=== PATIENT | female | born 1960 | race Caucasian/White ===

== ENCOUNTER 2018-03-03 13:49 | Inpatient (IN) | payer BC, OTHER ==
--- NOTE | 2018-03-03 14:16 | PDOC ---
History of Present Illness - General Stated Complaint: ABD PAIN, ANXIETY Time Seen by Provider: 03/03/18 14:16 History Source: Patient Exam Limitations: No Limitations - History of Present Illness Initial Comments: 03/03/18 15:14 58 year old female with PMH pancreatic divisum, pancreatitis, cholecystectomy, appendectomy, david fundoplication, TIA (2013) BIBA for abdominal pain x1 week. She locates her abdominal pain to the epigastrium and RUQ, radiating to her right flank/right back, constant, sharp/crampy, aggravated by movement/ coughing, alleviated by CBD oil, currently 12/07. She admits to nausea, vomiting since yesterday, denies blood in vomit. She denies fever, chest pain, palpitations, shortness of breath, diarrhea, blood in stool. She states that she is constipated, which is not new for her. She states she usually follows up at [facility], but came to [facility] because it is closer. PCP - Dr. Casey Santamaria Allergies: - Ketorlac - increases pain - Reglan - SOB/airway swelling - Compazine - SOB/airway swelling Past History - Past Medical History Allergies/Adverse Reactions: Allergies Allergy/AdvReac Type Severity Reaction Status Date / Time ketorolac tromethamine Allergy Verified 03/03/18 14:19 [From Toradol] metoclopramide HCl Allergy Verified 03/03/18 14:19 [From Reglan] prochlorperazine Allergy Verified 03/03/18 14:19 [From Compazine] prochlorperazine edisylate Allergy Verified 03/03/18 14:19 [From Compazine] prochlorperazine maleate Allergy Verified 03/03/18 14:19 [From Compazine] Home Medications: Ambulatory Orders Clonazepam [Klonopin] 1 mg PO QID 03/03/18 Escitalopram Oxalate [Lexapro -] 10 mg PO DAILY 03/03/18 Lipase/Protease/Amylase [Tee Peterson 24,000 Units Capsule] 1 each PO DAILY Anemia: No Asthma: No Cancer: No CVA: No Diabetes: No GI Disorders: Yes HTN: Yes (from anxiety) Psychiatric Problems: Yes (Anxiety) Seizures: No - Surgical History Abdominal Surgery: Yes (Pancreatic Sx w/ 3stents placement, Fundoplication, Colectomy, EsophagealSx) Appendectomy: Yes Cholecystectomy: Yes Orthopedic Surgery: Yes (shoulder surgey) - Immunization History Immunization Up to Date: Yes - Suicide/Smoking/Psychosocial Hx Smoking History: Former smoker Have you smoked in the past 12 months: No Number of Cigarettes Smoked Daily: 0 Cigars Per Day: 0 'Breaking Loose' booklet given: 02/21/15 Hx Alcohol Use: No Drug/Substance Use Hx: No Substance Use Type: None Review of Systems - Review of Systems Able to Perform ROS?: Yes Comments:: 03/03/18 15:20 General: denies fever, night sweats, generalized weakness. HEENT: denies sore throat, rhinorrhea, ear pain. Heart: denies chest pain, palpitations, syncope, lower extremity swelling, diaphoresis. Respiratory: denies shortness of breath, cough, sputum production, hemoptysis. Abdomen: admits to abdominal pain, nausea, vomiting, constipation. denies diarrhea, blood in stool. : admits to flank pain. denies dysuria, increased urinary frequency, hematuria , urinary incontinence. Back: admits to back pain. Musculoskeletal: denies joint pain, muscle pain, joint swelling. Neurological: denies headache, dizziness, numbness, tingling, weakness. Skin: denies rash, laceration, abrasion. *Physical Exam - Physical Exam Comments: 03/03/18 15:21 Constitutional: Well-nourished, Well-developed, appearing stated age. HEENT: head is normocephalic, atraumatic. EOMI. PERRLA. Neck: supple. Full ROM. Heart: regular rhythm. no murmurs, rubs or gallops. Lungs: clear to auscultation bilaterally. no crackles, rhonchi or wheezing. no stridor. Abdomen: soft. tenderness to palpation of epigastrium and LLQ. decreased bowel sounds. no rebound, guarding, masses. midline vertical healed surgical scar. no belly button noted. Extremities: Peripheral pulses intact and equal. No lower extremity edema. Neurological: CN 2-12 grossly intact. Moves all four extremities. Psych: awake, alert, oriented x3. Follows commands. Answers questions appropriately. Heart Score/ECG Review - ECG Impressions Comment:: 03/03/18 18:05 rate 62. regular rhythm. normal axis. normal intervals. nonspecific ST changes. ED Treatment Course - LABORATORY CBC & Chemistry Diagram: 03/03/18 16:35 03/03/18 14:36 Medical Decision Making - Medical Decision Making 03/03/18 15:22 58 year old female with PMH pancreatic divisum, pancreatitis, TIA (2013), cholecystectomy, appendectomy, david fundoplication, BIBA for Epigastric/RUQ abdominal pain radiating to her right flank/right back x1 week associated with 1 day of nausea/vomiting. Initial Vital Signs Temp Pulse Resp BP Pulse Ox 98.0 F 78 18 126/73 98 03/03/18 14:09 03/03/18 14:09 03/03/18 14:09 03/03/18 14:09 03/03/18 14:09 Afebrile. No tachycardia. No tachypnea. No hypotension. Ny hypertension. No hypoxia on room air. Concern for pancreatitis, hx of prior, epigastric pain/N/V. - Pending lipase, CMP, CBC - Pending CT A/P Low concern for UTI/nephrolithiasis, (+) right flank pain - Pending CBC, UA/UC, CT A/P Morphine 4 mg IV ordered for pain. Zofran 4 mg IV ordered for nausea. IVF 1L bolus ordered for hydration. 03/03/18 16:44 RN was able to place line in right foot. US guided IV was placed in right AC area for better access. Pt reports improvement of her pain, but that she feels it slightly coming back. 03/03/18 17:39 CBC WBC 7.7 K/mm3 (4.0-10.0) 03/03/18 16:35 Corrected WBC (auto) Cancelled 03/03/18 14:36 RBC 4.00 M/mm3 (3.60-5.2) 03/03/18 16:35 Hgb 11.5 GM/dL (10.7-15.3) 03/03/18 16:35 Hct 35.1 % (32.4-45.2) 03/03/18 16:35 MCV 87.8 fl (80-96) 03/03/18 16:35 MCH 28.9 pg (25.7-33.7) 03/03/18 16:35 MCHC 32.9 g/dl (32.0-36.0) 03/03/18 16:35 RDW 13.8 % (11.6-15.6) 03/03/18 16:35 Plt Count 361 K/MM3 (134-434) 03/03/18 16:35 MPV 7.4 fl (7.5-11.1) L 03/03/18 16:35 Absolute Neuts (auto) 5.2 K/mm3 (1.5-8.0) 03/03/18 16:35 Neutrophils % 68.0 % (42.8-82.8) 03/03/18 16:35 Lymphocytes % 23.7 % (8-40) D 03/03/18 16:35 Monocytes % 7.0 % (3.8-10.2) 03/03/18 16:35 Eosinophils % 0.1 % (0-4.5) 03/03/18 16:35 Basophils % 1.2 % (0-2.0) 03/03/18 16:35 Nucleated RBC % 0 % (0-0) 03/03/18 16:35 Platelet Estimate Cancelled 03/03/18 14:36 Platelet Comment Cancelled 03/03/18 14:36 No leukocytosis. No anemia. CMP Sodium 140 mmol/L (136-145) 03/03/18 14:36 Potassium 3.9 mmol/L (3.5-5.1) 03/03/18 14:36 Chloride 108 mmol/L (98-107) H 03/03/18 14:36 Carbon Dioxide 23 mmol/L (21-32) 03/03/18 14:36 Anion Gap 8 MMOL/L (8-16) 03/03/18 14:36 BUN 13 mg/dL (7-18) 03/03/18 14:36 Creatinine 0.9 mg/dL (0.55-1.3) 03/03/18 14:36 Creat Clearance w eGFR > 60 (>60) 03/03/18 14:36 Random Glucose 95 mg/dL (74-106) 03/03/18 14:36 Calcium 9.1 mg/dL (8.5-10.1) 03/03/18 14:36 Total Bilirubin 0.3 mg/dL (0.2-1) 03/03/18 14:36 AST 29 U/L (15-37) 03/03/18 14:36 ALT 12 U/L (13-61) L 03/03/18 14:36 Alkaline Phosphatase 103 U/L (45-117) 03/03/18 14:36 Creatine Kinase 138 IU/L (26-192) 03/03/18 14:36 Troponin I < 0.02 ng/ml (0.00-0.05) 03/03/18 14:36 Total Protein 7.6 g/dl (6.4-8.2) 03/03/18 14:36 Albumin 4.0 g/dl (3.4-5.0) 03/03/18 14:36 Lipase 1791 U/L (73-393) H 03/03/18 14:36 No electrolyte abnormalities. No acute kidney injury. No transaminitis. Troponin normal. Elevated lipase - 1791; prior 44,514 Pt reports continued pain. - Morphine 4mg IV ordered - Second 1L bolus IVF ordered. Urine Test Results Urine Color Colorless 03/03/18 16:12 Urine Appearance Clear 03/03/18 16:12 Urine pH 8.0 (5.0-8.0) D 03/03/18 16:12 Ur Specific [place] 1.005 (1.004-1.035) 03/03/18 16:12 Urine Protein Negative (NEGATIVE) 03/03/18 16:12 Urine Glucose (UA) Negative (NEGATIVE) 03/03/18 16:12 Urine Ketones Negative (NEGATIVE) 03/03/18 16:12 Urine Blood Negative (NEGATIVE) 03/03/18 16:12 Urine Nitrite Negative (NEGATIVE) 03/03/18 16:12 Urine Bilirubin Negative (<2.0 mg/dL) 03/03/18 16:12 Ur Leukocyte Esterase Trace (NEGATIVE) 03/03/18 16:12 Ur Epithelial Cells Rare /HPF (FEW) 03/03/18 16:12 WBC 0-2 No evidence of UTI. 03/03/18 18:[address] Rosalio ochoa. 03/03/18 19:55 I discussed the case with Dr. Michele, who will assume care for the patient while she is in the Emergency Department. *DC/Admit/Observation/Transfer Diagnosis at time of Disposition: Pancreatitis - Discharge Dispostion Condition at time of disposition: Stable - Referrals - Patient Instructions - Post Discharge Activity
[2018-03-03 15:12] VITALS: BMI 20.5
[2018-03-03] MEDS ORDERED: morphine CARPU-JECT 4 MG/1 ML DISP.SYRIN IVPUSH ONE ×3 (15:16→19:41)
[2018-03-03] MEDS ORDERED: ONDANSETRON 4 MG/2 ML VIAL IVPUSH ONE (15:16)
[2018-03-03] MEDS ORDERED: SODIUM CHLORIDE 1,000 ML IV STA ×2 (15:16→16:49)
[2018-03-03] MEDS ORDERED: ONDANSETRON 4 MG/2 ML VIAL ONE (15:25)
[2018-03-03] MEDS ORDERED: morphine SULFATE 4 MG/ML VIAL ONE ×3 (15:25→20:18)
[2018-03-03 16:03] LABS: INR 1.02 (0.83-1.09)
[2018-03-03 16:06] LABS: ACTIVATED PTT 34.8 SECONDS (25.2-36.5)
[2018-03-03 16:16] LABS: ALK PHOS 103 U/L (45-117); ANION GAP 8 MMOL/L (8-16); BILIRUBIN,TOTAL 0.3 mg/dL (0.2-1); BLOOD UREA NITROGEN 13 mg/dL (7-18); CALCIUM 9.1 mg/dL (8.5-10.1); CHLORIDE 108 mmol/L (98-107); CO2 23 mmol/L (21-32); CREATININE 0.9 mg/dL (0.55-1.3); GLUCOSE,RANDOM 95 mg/dL (74-106); LIPASE 1791 U/L (73-393); POTASSIUM 3.9 mmol/L (3.5-5.1); SGOT/AST 29 U/L (15-37); SGPT/ALT 12 U/L (13-61); SODIUM 140 mmol/L (136-145); TOT PROT 7.6 g/dl (6.4-8.2)
[2018-03-03 16:44] LABS: BASO % 1.2 % (0-2.0); EOS % 0.1 % (0-4.5); HEMATOCRIT 35.1 % (32.4-45.2); HEMOGLOBIN 11.5 GM/dL (10.7-15.3); LYMPH % 23.7 % (8-40); MCH 28.9 pg (25.7-33.7); MCHC 32.9 g/dl (32.0-36.0); MEAN CELL VOLUME 87.8 fl (80-96); MEAN PLT VOLUME 7.4 fl (7.5-11.1); PLATELET COUNT 361 K/MM3 (134-434); RDW 13.8 % (11.6-15.6); WHITE BLOOD COUNT 7.7 K/mm3 (4.0-10.0)
--- NOTE | 2018-03-03 16:47 | PDOC ---
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 Lipase elevated IV placed. CT abdomen pelvis make patient nothing by mouth hydrate pain meds and reassessed Dr. Allen to follow up Labs and CT and reasses <Bartolome Beck - Last Filed: 03/03/18 16:53> - HPI HPI: 03/03/18 16:54 The patient is a 58 year old female with a significant past medical history of pancreatic divisum, pancreatitis, TIA in 2013 who presents to the ER with abdominal pain for the past week. Patient localizes the pain in the epigastrium that radiates to the right side of her back and is exacerbated with coughing. Patient endorses nausea and vomiting yesterday. Patient denies blood in the vomit. Patient has been unable to tolerate food or drinks other than small sips of gingerale. The patient denies chest pain, shortness of breath, headache, and dizziness. Denies fever, chills, diarrhea, and constipation. Denies dysuria, frequency, urgency, and hematuria. Allergies: NKA Past surgical history: pancreatic stent Social history: No reported alcohol, drug, or cigarette use. - Physicial Exam PE: 03/03/18 16:54 Adult Physical Exam Vitals: Triage vital signs reviewed General Appearance: No acute distress, well nourished, well developed Cardiac: Regular rate and rhythm, no murmurs, no rubs, no gallops Lungs: Clear to auscultation bilateral, good air movement bilaterally Abdomen: Soft, nondistended, normal bowel sounds. (+) Epigastric tenderness. Extremities: Full range of motion to all extremities, no cyanosis, clubbing, or edema Skin: Warm and dry, no rashes or lesions, no rash, no petechiae Neuro: AOX3; Cranial Nerves 2-12 grossly intact, Strength intact to all extremities, Sensation intact to all extremities, gait normal Psych: Normal mood, normal affect <Renetta Tejeda - Last Filed: 03/03/18 16:54>
--- NOTE | 2018-03-03 16:48 | PDOC ---
*Physical Exam - Vital Signs Last Vital Signs Temp Pulse Resp BP Pulse Ox 98.0 F 78 18 126/73 98 03/03/18 14:09 03/03/18 14:09 03/03/18 14:09 03/03/18 14:09 03/03/18 14:09 - Physical Exam Comments: 03/03/18 19:49 gen: aaox3, uncomfortable abd: soft, epigastric ttp, R cva ttp ext: no c/c/e ED Treatment Course - LABORATORY CBC & Chemistry Diagram: 03/03/18 16:35 03/03/18 14:36 - ADDITIONAL ORDERS Additional order review: Laboratory Results 03/03/18 03/03/18 14:36 14:36 PT with INR 12.00 INR 1.02 PTT (Actin FS) 34.8 Sodium 140 Potassium 3.9 Chloride 108 H Carbon Dioxide 23 Anion Gap 8 BUN 13 Creatinine 0.9 Creat Clearance w eGFR > 60 Random Glucose 95 Calcium 9.1 Total Bilirubin 0.3 AST 29 ALT 12 L Alkaline Phosphatase 103 Creatine Kinase 138 Troponin I < 0.02 Total Protein 7.6 Albumin 4.0 Lipase 1791 H 03/03/18 14:36 RBC Cancelled MCV Cancelled MCHC Cancelled RDW Cancelled MPV Cancelled Neutrophils % Cancelled Lymphocytes % Cancelled Monocytes % Cancelled Eosinophils % Cancelled Basophils % Cancelled - Medications Given in the ED: ED Medications Discontinued Medications Generic Name Dose Route Start Last Admin Trade Name Freq PRN Reason Stop Dose Admin Sodium Chloride 1,000 mls @ 1,000 mls/hr 03/03/18 15:16 03/03/18 15:34 Normal Saline - IV 03/03/18 16:15 1,000 mls/hr ASDIR STA Administration Morphine Sulfate 4 mg 03/03/18 15:16 03/03/18 15:34 Morphine Injection - IVPUSH 03/03/18 15:17 4 mg ONCE ONE Administration Ondansetron HCl 4 mg 03/03/18 15:16 03/03/18 15:34 Zofran Injection IVPUSH 03/03/18 15:17 4 mg ONCE ONE Administration Medical Decision Making - Medical Decision Making 03/03/18 16:48 pt signed out from the prior attending with epigastric pain and hx of pancreatitis -cbc pending -ct abd/pelvis pending -lipase 1700 -will make pt npo 03/03/18 19:32 fluid filled small bowel loops elevated lipase to 1790 no acute pancreatitis on ct will admit to medicine for npo, gi eval, ivf hydation and pancreatitits 03/03/18 19:52 pt with abd pain and elevated lipase will admit to medicine npo ivf hydraiton, pain control, nuasea control microblog sent to [facility] for admission 03/03/18 21:48 resident discussed the case with [facility] who accepts pt to service *DC/Admit/Observation/Transfer Diagnosis at time of Disposition: Abdominal pain Pancreatitis Qualifiers: Chronicity: chronic Pancreatitis type: unspecified pancreatitis type Qualified Code(s): K86.1 - Other chronic pancreatitis - Discharge Dispostion Condition at time of disposition: Stable Decision to Admit order: Yes - Referrals - Patient Instructions - Post Discharge Activity - Attestations Physician Attestion: 03/03/18 16:48 I, Dr. Val Allen, DO, attest that this document has been prepared under my direction and personally reviewed by me in its entirety. I further attest, that it accurately reflects all work, treatment, procedures and medical decision -making performed by me.
[2018-03-03 16:49] LABS: URINE APPEARANCE CLEAR; URINE BILIRUBIN NEGATIVE (<2.0 mg/dL); URINE COLOR COLORLESS; URINE GLUCOSE (UA) NEGATIVE (NEGATIVE); URINE KETONE NEGATIVE (NEGATIVE); URINE LEUK ESTERASE TRACE (NEGATIVE); URINE NITRITE NEGATIVE (NEGATIVE); URINE PROTEIN NEGATIVE (NEGATIVE); URINE UROBILINOGEN NEGATIVE mg/dL (0.2-1.0)
[2018-03-03 16:54] LABS: EPI CELLS RARE /HPF (FEW)
--- NOTE | 2018-03-03 19:06 | PDOC ---
*Physical Exam - Vital Signs Last Vital Signs Temp Pulse Resp BP Pulse Ox 98.0 F 78 18 126/73 98 03/03/18 14:09 03/03/18 14:09 03/03/18 14:09 03/03/18 14:09 03/03/18 14:09 ED Treatment Course - LABORATORY CBC & Chemistry Diagram: 03/03/18 16:35 03/03/18 14:36 - ADDITIONAL ORDERS Additional order review: Laboratory Results 03/03/18 03/03/18 03/03/18 16:12 14:36 14:36 PT with INR 12.00 INR 1.02 PTT (Actin FS) 34.8 Sodium 140 Potassium 3.9 Chloride 108 H Carbon Dioxide 23 Anion Gap 8 BUN 13 Creatinine 0.9 Creat Clearance w eGFR > 60 Random Glucose 95 Calcium 9.1 Total Bilirubin 0.3 AST 29 ALT 12 L Alkaline Phosphatase 103 Creatine Kinase 138 Troponin I < 0.02 Total Protein 7.6 Albumin 4.0 Lipase 1791 H Urine Color Colorless Urine Appearance Clear Urine pH 8.0 D Ur Specific [place] 1.005 Urine Protein Negative Urine Glucose (UA) Negative Urine Ketones Negative Urine Blood Negative Urine Nitrite Negative Urine Bilirubin Negative Urine Urobilinogen Negative Ur Leukocyte Esterase Trace Urine WBC (Auto) 0-2 Urine RBC (Auto) <1 Ur Epithelial Cells Rare 03/03/18 03/03/18 16:35 14:36 RBC 4.00 Cancelled MCV 87.8 Cancelled MCHC 32.9 Cancelled RDW 13.8 Cancelled MPV 7.4 L Cancelled Neutrophils % 68.0 Cancelled Lymphocytes % 23.7 D Cancelled Monocytes % 7.0 Cancelled Eosinophils % 0.1 Cancelled Basophils % 1.2 Cancelled - Medications Given in the ED: ED Medications Discontinued Medications Generic Name Dose Route Start Last Admin Trade Name Freq PRN Reason Stop Dose Admin Sodium Chloride 1,000 mls @ 1,000 mls/hr 03/03/18 15:16 03/03/18 15:34 Normal Saline - IV 03/03/18 16:15 1,000 mls/hr ASDIR STA Administration Sodium Chloride 1,000 mls @ 1,000 mls/hr 03/03/18 16:49 03/03/18 17:26 Normal Saline - IV 03/03/18 17:48 1,000 mls/hr ASDIR STA Administration Morphine Sulfate 4 mg 03/03/18 15:16 03/03/18 15:34 Morphine Injection - IVPUSH 03/03/18 15:17 4 mg ONCE ONE Administration Morphine Sulfate 4 mg 03/03/18 16:48 03/03/18 16:56 Morphine Injection - IVPUSH 03/03/18 16:49 4 mg ONCE ONE Administration Ondansetron HCl 4 mg 03/03/18 15:16 03/03/18 15:34 Zofran Injection IVPUSH 03/03/18 15:17 4 mg ONCE ONE Administration Medical Decision Making - Medical Decision Making 03/03/18 19:03 Received sign out from Dr. Lara. In short, pt is a 58 y/o female complaining of epigastric pain and RUQ pain for the past week in setting of history of recurrent pancreatitis. Lipase elevated to 1700s. Has received 8mg Morphine. CT does not show evidence of bowel obstruction or acute pancreatitis. 03/03/18 19:45 Pt reports pain only been temporarily alleviated by morphine. Remains tender in RUQ. Microblog sent to [facility] for admission. Telephone consultation with resident Dr. Dixon. Will admitted to med/surg on observational status for Dr. Davies. Requested GI consultation. 03/03/18 21:27 Pt reports she is experiencing increased nausea as well as generalized pruritus and erythema on her legs after her CT scan. No lesions were visible and pt noted "they must have gone away." Requested Benadryl for itching. Also reported the morphine was only provided temporary relief. Requested Dilaudid. Ordered Zofran ODT and Benadryl PO. 03/03/18 21:[address] Tapia. Suggested increasing pt's fluid rate and encouraging PO intake. Drip rate increased to 150gtts. *DC/Admit/Observation/Transfer Diagnosis at time of Disposition: Pancreatitis Qualifiers: Chronicity: chronic Pancreatitis type: unspecified pancreatitis type Qualified Code(s): K86.1 - Other chronic pancreatitis - Discharge Dispostion Condition at time of disposition: Stable Decision to Admit order: Yes - Referrals - Patient Instructions - Post Discharge Activity
[2018-03-03] MEDS ORDERED: LACTATED RINGERS SOLUTION 1,000 ML/1,000 ML INFUS.BAG IV SCH (19:45)
--- NOTE | 2018-03-03 20:31 | PN ---
Teaching Attending Note Name of Resident: Lenny Davila ATTENDING PHYSICIAN STATEMENT I saw and evaluated the patient. I reviewed the resident's note and discussed the case with the resident. I agree with the resident's findings and plan as documented. SUBJECTIVE: Patient is a 58 year old woman with PMH of pancreatic divisum (s/p pancreatic stents and [place] procedure), pancreatitis, multiple abdominal surgeries (11 since 2000) including cholecystectomy, appendectomy, david fundoplication and TIA (2013) presenting with abdominal pain for week. She locates her abdominal pain to the epigastrium and RUQ, radiating to her right flank/right back, constant, sharp/crampy, aggravated by movement/coughing, alleviated by CBD oil, currently 12/07. She admits to nausea and nonbloody vomiting since yesterday. She denies fever, chest pain, palpitations, shortness of breath, diarrhea, blood in stool. She states that she has constipation. OBJECTIVE: Alert Vital Signs Period Temp Pulse Resp BP Sys/Lombardi Pulse Ox Last 24 Hr 98.0 F 78 18 126/73 98 HEENT: No Jaundice, eye redness or discharge, PERRLA, EOMI. Normocephalic, atraumatic. External ears are normal and hearing is grossly intact. No nasal discharge. Neck: Supple, nontender. No palpable adenopathy or thyromegaly. No JVD Chest: Good effort. Clear to auscultation and percussion. Heart: Regular. No S3, rub or murmur Abdomen: Not distended, surgical scars, upper abdominal tenderness; no HSM. No rebound or guarding. Normoactive bowel sounds. Ext: Peripheral pulses intact. No leg edema. Skin: Warm and dry. No petechiae, rash or ecchymosis. Neuro: Alert. Oriented x3. CN 2-12 grossly intact. Sensation grossly intact in all four extremities and DTR are symmetric. Current Medications Generic Name Dose Route Start Last Admin Trade Name Freq PRN Reason Stop Dose Admin Lactated Ringer's 1,000 ml in 1,000 mls @ 100 mls/hr 03/03/18 19:45 03/03/18 20:27 Lactated Ringers Solution IV 100 mls/hr ASDIR NANCY Administration Home Medications Medication Instructions Recorded Clonazepam [Klonopin] 1 mg PO QID 03/03/18 Escitalopram Oxalate [Lexapro -] 10 mg PO DAILY 03/03/18 Lipase/Protease/Amylase [Tee Peterson 1 each PO DAILY 03/03/18 24,000 Units Capsule] Abnormal Lab Results 03/03/18 03/03/18 14:36 16:35 MPV 7.4 L Chloride 108 H ALT 12 L Lipase 1791 H ASSESSMENT AND PLAN: 1. Pancreatitis - Features clinically consistent with acute pancreatitis, though not confirmed by CT scan. Will use IV morphine for pain control and give Lactated Ringers at 150ml/hour. Oral feeds as tolerated. Monitor serum electrolytes and urine output. 2. DVT prophylaxis - Lovenox 40 mg SQ q 24 hours. 3. Advance directives - Full code
[2018-03-03] MEDS ORDERED: ONDANSETRON *ODT* 4 MG TABLET SL ONE (21:13)
[2018-03-03] MEDS ORDERED: ONDANSETRON *ODT* 4 MG TABLET ONE (21:14)
[2018-03-03] MEDS ORDERED: diphenhydrAMINE HCL 25 MG CAPSULE (FP) PO ONE ×2 (21:27→21:42)
[2018-03-03] MEDS: LACTATED RINGERS SOLUTION 1,000 ML/1,000 ML INFUS.BAG IV SCH (22:20)
--- NOTE | 2018-03-03 22:36 | HP ---
CHIEF COMPLAINT: Abdominal Pain PCP: Dr Casey Santamaria HISTORY OF PRESENT ILLNESS: Pt is a 58 y/o lady with a significant past medical history of chronic pancreatitis, pancreatic divisum, TIA (2013), cardiac arrest s/p ERCP complications (2014) presented to [facility] this evening c/o severe pain under her R breast sharp in nature and constant. Pain is 10/10 in severity and radiating toward her back in the R CVA area. Pt states pain began 3-4 days ago abruptly. Pt endorses that she has experienced numerous episodes of pancreatitis where she was hospitalized. Pain is associated with chills, diaphoresis, vomiting, and nausea. Pt states she cannot tolerate food or liquid as this makes her nauseas. Pt uses a drug called "Isidron" which is not available in the [facility] due to FDA regulations so she travels to [facility] to receive the medication. Endorses that this medication has assuaged her Nausea symptoms associated with her previous episodes of pancreatitis. ER course was notable for: (1) Lipase 1791 (2) 4 mg morphine mg x3 (3) CT ABD/Pelvis--No Acute Pancreatitis Recent Travel: Denies PAST MEDICAL HISTORY: PAST SURGICAL HISTORY: Pancreatic Sx w/ 3stents placement, Fundoplication, Colectomy, EsophagealSx, Cholecystectomy, Appendectomy, Face Lift, david fundoplication Social History: Smoking: Denies Alcohol: Denies Drugs: Denies Family History: Allergies ketorolac tromethamine [From Toradol] Allergy (Verified 03/03/18 14:19) metoclopramide HCl [From Reglan] Allergy (Verified 03/03/18 14:19) prochlorperazine [From Compazine] Allergy (Verified 03/03/18 14:19) prochlorperazine edisylate [From Compazine] Allergy (Verified 03/03/18 14:19) prochlorperazine maleate [From Compazine] Allergy (Verified 03/03/18 14:19) HOME MEDICATIONS: Home Medications Medication Instructions Recorded Clonazepam [Klonopin] 1 mg PO QID 03/03/18 Escitalopram Oxalate [Lexapro -] 10 mg PO DAILY 03/03/18 Lipase/Protease/Amylase [Creon 1 each PO DAILY 03/03/18 24,000 Units Capsule] REVIEW OF SYSTEMS CONSTITUTIONAL: Absent: fever, chills, diaphoresis, generalized weakness, malaise, loss of appetite, weight change HEENT: Absent: rhinorrhea, nasal congestion, throat pain, throat swelling, difficulty swallowing, mouth swelling, ear pain, eye pain, visual changes CARDIOVASCULAR: Absent: chest pain, syncope, palpitations, irregular heart rate, lightheadedness , peripheral edema RESPIRATORY: Absent: cough, shortness of breath, dyspnea with exertion, orthopnea, wheezing, stridor, hemoptysis GASTROINTESTINAL: PRESENT: abdominal pain, abdominal distension, nausea, vomiting, constipation GENITOURINARY: Absent: dysuria, frequency, urgency, hesitancy, hematuria, flank pain, genital pain MUSCULOSKELETAL: Absent: myalgia, arthralgia, joint swelling, back pain, neck pain SKIN: Absent: rash, itching, pallor HEMATOLOGIC/IMMUNOLOGIC: Absent: easy bleeding, easy bruising, lymphadenopathy, frequent infections ENDOCRINE: Absent: unexplained weight gain, unexplained weight loss, heat intolerance, cold intolerance NEUROLOGIC: Absent: headache, focal weakness or paresthesias, dizziness, unsteady gait, seizure, mental status changes, bladder or bowel incontinence PSYCHIATRIC: Absent: anxiety, depression, suicidal or homicidal ideation, hallucinations. PHYSICAL EXAMINATION Vital Signs - 24 hr 03/03/18 14:09 Temperature 98.0 F Pulse Rate 78 Respiratory 18 Rate Blood Pressure 126/73 O2 Sat by Pulse 98 Oximetry (%) GENERAL: AAOx3, AD, HEAD: NC/AT EYES:EOMI, PERRLA EARS, NOSE, THROAT: MMM NECK: Supple LUNGS: CTA B/L HEART: RRR no MRG S1 S2 ABDOMEN: 4 Inch linear Surgical Scar, lateral pfannenstiel incision. MUSCULOSKELETAL: Full ROM throughout UPPER EXTREMITIES: No CCE LOWER EXTREMITIES: No CCE NEUROLOGICAL: CN 2-12 intact PSYCHIATRIC: Cooperative. Good eye contact. Appropriate mood and affect. SKIN: Multiple tattoos--> right arm, back, left foot Laboratory Results - last 24 hr 03/03/18 03/03/18 03/03/18 14:36 14:36 14:36 WBC Cancelled Corrected WBC (auto) Cancelled RBC Cancelled Hgb Cancelled Hct Cancelled MCV Cancelled MCH Cancelled MCHC Cancelled RDW Cancelled Plt Count Cancelled MPV Cancelled Absolute Neuts (auto) Cancelled Neutrophils % Cancelled Lymphocytes % Cancelled Monocytes % Cancelled Eosinophils % Cancelled Basophils % Cancelled Nucleated RBC % Cancelled Platelet Estimate Cancelled Platelet Comment Cancelled PT with INR 12.00 INR 1.02 PTT (Actin FS) 34.8 Sodium 140 Potassium 3.9 Chloride 108 H Carbon Dioxide 23 Anion Gap 8 BUN 13 Creatinine 0.9 Creat Clearance w eGFR > 60 Random Glucose 95 Calcium 9.1 Total Bilirubin 0.3 AST 29 ALT 12 L Alkaline Phosphatase 103 Creatine Kinase 138 Troponin I < 0.02 Total Protein 7.6 Albumin 4.0 Lipase 1791 H Urine Color Urine Appearance Urine pH Ur Specific Nogal Urine Protein Urine Glucose (UA) Urine Ketones Urine Blood Urine Nitrite Urine Bilirubin Urine Urobilinogen Ur Leukocyte Esterase Urine WBC (Auto) Urine RBC (Auto) Ur Epithelial Cells 03/03/18 03/03/18 16:12 16:35 WBC 7.7 Corrected WBC (auto) RBC 4.00 Hgb 11.5 Hct 35.1 MCV 87.8 MCH 28.9 MCHC 32.9 RDW 13.8 Plt Count 361 MPV 7.4 L Absolute Neuts (auto) 5.2 Neutrophils % 68.0 Lymphocytes % 23.7 D Monocytes % 7.0 Eosinophils % 0.1 Basophils % 1.2 Nucleated RBC % 0 Platelet Estimate Platelet Comment PT with INR INR PTT (Actin FS) Sodium Potassium Chloride Carbon Dioxide Anion Gap BUN Creatinine Creat Clearance w eGFR Random Glucose Calcium Total Bilirubin AST ALT Alkaline Phosphatase Creatine Kinase Troponin I Total Protein Albumin Lipase Urine Color Colorless Urine Appearance Clear Urine pH 8.0 D Ur Specific Nogal 1.005 Urine Protein Negative Urine Glucose (UA) Negative Urine Ketones Negative Urine Blood Negative Urine Nitrite Negative Urine Bilirubin Negative Urine Urobilinogen Negative Ur Leukocyte Esterase Trace Urine WBC (Auto) 0-2 Urine RBC (Auto) <1 Ur Epithelial Cells Rare ASSESSMENT/PLAN: Pt is a 58 y/o lady with a significant past medical history of chronic pancreatitis, pancreatic divisum, TIA (2013) presented to [facility] this evening c/ o severe pain under her R breast sharp in nature, constant. Pain is 10/10 in severity and radiating toward her back in the R CVA area. # Acute on Chronic Pancreatitis -Lipase 1791 CT ABD/Pelvis--> No evidence of acute pancreatitis though clinically apparent -LR Solution @ 150 cc/hr -Morphine 3 mg Q4H PRN for analgesia -G.I Consult FEN LR @ 150cc/hr Monitor electrolytes NPO DVT ppx: Lovenox 40 mg sq daily Dispo: Monitor on floor Visit type - Emergency Visit Emergency Visit: Yes ED Registration Date: 03/03/18 Care time: The patient presented to the Emergency Department on the above date and was hospitalized for further evaluation of their emergent condition. - New Patient This patient is new to me today: Yes Date on this admission: 03/04/18 - Critical Care Critical Care patient: No
[2018-03-04] MEDS ORDERED: morphine SULFATE 4 MG/ML VIAL ONE ×3 (00:43→08:35)
[2018-03-04] MEDS: morphine SULFATE 4 MG/ML VIAL IVPUSH PRN ×6 (00:50→21:36)
[2018-03-04 07:15] LABS: BASO % 1.1 % (0-2.0); EOS % 0.8 % (0-4.5); HEMATOCRIT 33.4 % (32.4-45.2); HEMOGLOBIN 10.7 GM/dL (10.7-15.3); LYMPH % 35.6 % (8-40); MCH 28.2 pg (25.7-33.7); MEAN CELL VOLUME 88.2 fl (80-96); MONO % 7.8 % (3.8-10.2); NEUT % 54.7 % (42.8-82.8); PLATELET COUNT 275 K/MM3 (134-434); RBC 3.78 M/mm3 (3.60-5.2); WHITE BLOOD COUNT 6.6 K/mm3 (4.0-10.0)
[2018-03-04 07:29] LABS: INR 1.03 (0.83-1.09); PROTHROMBIN TIME (PATIENT) 12.2 SEC (9.7-13.0)
[2018-03-04 07:31] LABS: ACTIVATED PTT 35.4 SECONDS (25.2-36.5)
[2018-03-04 07:37] LABS: ANION GAP 6 MMOL/L (8-16); BLOOD UREA NITROGEN 9 mg/dL (7-18); CHLORIDE 113 mmol/L (98-107); CO2 25 mmol/L (21-32); CREATININE 0.8 mg/dL (0.55-1.3); GLUCOSE,RANDOM 73 mg/dL (74-106); MAGNESIUM 1.7 mg/dL (1.8-2.4); PHOSPHOROUS 3.6 mg/dL (2.5-4.9); POTASSIUM 4.2 mmol/L (3.5-5.1); SODIUM 144 mmol/L (136-145)
--- NOTE | 2018-03-04 09:30 | EKG ---
Test Reason : Blood Pressure : / mmHG Vent. Rate : 062 BPM Atrial Rate : 062 BPM P-R Int : 190 ms QRS Dur : 090 ms QT Int : 446 ms P-R-T Axes : 074 043 044 degrees QTc Int : 452 ms POOR DATA QUALITY, INTERPRETATION MAY BE ADVERSELY AFFECTED NORMAL SINUS RHYTHM RSR' OR QR PATTERN IN V1 SUGGESTS RIGHT VENTRICULAR CONDUCTION DELAY WHEN COMPARED WITH ECG OF 29-NOV-2015 16:47, NO SIGNIFICANT CHANGE WAS FOUND Confirmed by RAAD RAI MD ([id number]) on 03/04/2018 9:29:51 AM Referred By: Confirmed By:RAAD RAI MD
[2018-03-04] MEDS ORDERED: PROCHLORPERAZINE INJECTION 10 MG/2 ML VIAL IVPB PRN (09:55)
[2018-03-04] MEDS ORDERED: POTASSIUM PHOSPHATE 30 MM in DEXTROSE 5%-WATER - 500 ML IVPB ONE ×2 (10:15→11:00)
[2018-03-04] MEDS: ESCITALOPRAM OXALATE 10 MG TABLET (FP) PO SCH (11:24)
[2018-03-04] MEDS: clonazePAM 0.5 MG TABLET PO SCH ×4 (11:24→21:36)
[2018-03-04] MEDS: ENOXAPARIN NA (PORCINE) 40 MG/0.4 ML DISP.SYRIN SQ SCH (11:30)
[2018-03-04] MEDS: LACTATED RINGERS SOLUTION 1,000 ML/1,000 ML INFUS.BAG IV SCH (12:57)
[2018-03-04] MEDS ORDERED: clonazePAM 0.5 MG TABLET PO SCH (14:00)
[2018-03-04] MEDS ORDERED: METOCLOPRAMIDE HCL INJECTION 10 MG/2 ML VIAL IVPUSH ONE (17:12)
[2018-03-04] MEDS ORDERED: ONDANSETRON 4 MG/2 ML VIAL IVPUSH ONE (17:48)
--- NOTE | 2018-03-04 18:31 | PN ---
Teaching Attending Note Name of Resident: Davonte Alexander ATTENDING PHYSICIAN STATEMENT I saw and evaluated the patient. I reviewed the resident's note and discussed the case with the resident. I agree with the resident's findings and plan as documented. SUBJECTIVE: No fever or chills . has abd pain, has N/V, and diarrhea . brown liquid with emesis . no blood in diarrhea . no dysuria descrbes abd pain as a belt frm epigastrium to back through the R flank OBJECTIVE: NAD, looks comfortable. Cv: RRR, no MRG Lungs: CTAB Ext : no edema Abd: soft, ND, TTP in epigastric area, RUQ, and RLQ. R CVA tenderness ASSESSMENT AND PLAN: 58 y/o lady with h/o recurrent acute pancreatitis , pancreatic divisim, [place] procedure, Yair funduplication , CCY, h/o pancreatic stents at some points, TIA , appendectomy, Myomectomy, viscus perforation after colonoscopy, who presented with abd pain, N/V/D 1- Abd pain: could be due to acute pancreatitis, but could be gastroenteritis given CT scan findings in R colon. No signs of obstruction o nCT scan - IVF . monitor sugar. if needed can change fluids - NPO - pain control . No increase in her morphine dose ( requests dilaudid ) - stool cx and c diff if recurrent diarrhea - QTC is 452. try to avoid zofran unless very necessary. ( allergic to compazine and reglan ) 2- Hypomagnesemia : replete 3- DVT PX : lovenox
[2018-03-04] MEDS ORDERED: MAGNESIUM SULF 50% (8.12 MEQ/2 ML-1 GM VIAL) IVPB ONE ×2 (18:32→20:15)
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
--- NOTE | 2018-03-04 19:54 | PN ---
Physical Exam: SUBJECTIVE: Patient seen and examined this morning in the ED. Mentions she has had 11 surgeries since 2000. Pain continues to wrap from the right abdomen around to the right flank. Initially 10/10, brought down to 6/10 after morphine. Mentions 3 episodes of NBNB vomit. Continues to feel nausea and anxious. Denies fevers, chills, chest pain, SOB. OBJECTIVE: Vital Signs Period Temp Pulse Resp BP Sys/Lombardi Pulse Ox Last 24 Hr 97.7 F-98.2 F 54-83 18-20 105-139/50-76 94-100 GENERAL: A&Ox3, NAD HEAD: NCAT EYES: PERRL, EOMI ENT: Oropharynx clear without exudates, MMM NECK: No JVD LUNGS: Clear to auscultation bilaterally, no wheezes HEART: Regular rate and rhythm, S1, S2 without murmur ABDOMEN: Soft, Tender to palpation in the midepigastrum, RUQ, and RLQ. Nondistended, + bowel sounds, no guarding EXTREMITIES: 2+ pulses, no edema. NEUROLOGICAL: Cranial nerves II through XII grossly intact. Normal speech. 5/5 Muscle strength to Handgrip, Elbow flexion/extension, and hip flexion/ extension. Gross sensation intact throughout. Laboratory Results - last 24 hr 03/04/18 03/04/18 03/04/18 06:49 06:49 06:49 WBC 6.6 RBC 3.78 Hgb 10.7 Hct 33.4 MCV 88.2 MCH 28.2 MCHC 32.0 RDW 14.0 Plt Count 275 D MPV 7.0 L Absolute Neuts (auto) 3.6 Neutrophils % 54.7 Lymphocytes % 35.6 D Monocytes % 7.8 Eosinophils % 0.8 D Basophils % 1.1 Nucleated RBC % 0 PT with INR 12.20 INR 1.03 PTT (Actin FS) 35.4 Sodium 144 Potassium 4.2 Chloride 113 H Carbon Dioxide 25 Anion Gap 6 L BUN 9 Creatinine 0.8 Creat Clearance w eGFR > 60 Random Glucose 73 L Calcium 9.0 Phosphorus 3.6 Magnesium 1.7 L Lipase 194 Stool Occult Blood Negative Active Medications Clonazepam (Klonopin -) 1 mg PO QID [facility] Last Admin: 03/04/18 17:18 Dose: 1 mg Enoxaparin Sodium (Lovenox -) 40 mg SQ DAILY [facility] Last Admin: 03/04/18 11:30 Dose: Not Given Escitalopram Oxalate (Lexapro -) 10 mg PO DAILY [facility] Last Admin: 03/04/18 11:24 Dose: 10 mg Lactated Ringer's (Lactated Ringers Solution) 1,000 ml in 1,000 mls @ 150 mls/ hr IV ASDIR [facility] Last Admin: 03/04/18 12:57 Dose: 150 mls/hr Potassium Phosphate 30 mm/ (Dextrose) 510 mls @ 85 mls/hr IVPB ONCE ONE Stop: 03/04/18 16:14 Morphine Sulfate (Morphine Sulfate) 3 mg IVPUSH Q4H PRN PRN Reason: PAIN LEVEL 7 - 10 Last Admin: 03/04/18 17:13 Dose: 3 mg IMAGING: -CT A/P: There is somewhat increased fluid within the a ascending and transverse colon - ? current/recent diarrheal illness. There is no CT evidence of acute pancreatitis. Mild acute pancreatitis may not be demonstrable on CT or MRI. Status post cholecystectomy. Status post gastric surgery. ASSESSMENT/PLAN: 58 y/o F with PMHx of Chronic pancreatitis, pancreatic divisum, TIA (2013) presented to [facility] with constant, 10/10, sharp pain under her R breast radiating toward her R CVA. 1. Abdominal pain -Possibly due to Acute on Chronic Pancreatitis vs gastroenteritis vs other diarrheal illness -Lipase 1791-->194 -CT A/P: ?current/recent diarrheal illness. Mild acute pancreatitis may not be demonstrable on CT or MRI. -Continue LR @ 100 mls/hr -NPO -FOBT negative -Pain control with Morphine 3mg Q4H (WOULD NOT INCREASE DOSE, recently requested dilaudid) -GI (Dr. Johnson) Consulted, Appreciate rec's, Will repeat FUA to exclude partial SBO due to adhesions -Amylase, CRP, hepatic function panel pending -UA Negative 2. Hypomagnesemia -Resolved 3. ?Anxiety -Continue home dose Klonopin, Lexapro 4. FEN -LR @ 100 mls/hr -Lytes wnl -NPO 5. PPx -DVT: Lovenox Dispo: Med-Surg Visit type - Emergency Visit Emergency Visit: Yes ED Registration Date: 03/03/18 Care time: The patient presented to the Emergency Department on the above date and was hospitalized for further evaluation of their emergent condition. - New Patient This patient is new to me today: Yes Date on this admission: 03/04/18 - Critical Care Critical Care patient: No - Discharge Referral Referred to [facility] No
[2018-03-05] MEDS: morphine SULFATE 4 MG/ML VIAL IVPUSH PRN ×2 (01:08→10:08)
[2018-03-05] MEDS: LACTATED RINGERS SOLUTION 1,000 ML/1,000 ML INFUS.BAG IV SCH (03:29)
[2018-03-05] MEDS ORDERED: PROMETHAZINE HCL 25 MG/1 ML VIAL IM ONE (04:01)
[2018-03-05 09:00] LABS: ALBUMIN 3.7 g/dl (3.4-5.0); ALK PHOS 103 U/L (45-117); AMYLASE 116 U/L (25-115); BILIRUBIN,DIRECT < 0.2 mg/dL (0.0-0.2); BILIRUBIN,TOTAL 0.5 mg/dL (0.2-1); SGOT/AST 35 U/L (15-37); SGPT/ALT 11 U/L (13-61); TOT PROT 6.9 g/dl (6.4-8.2)
[2018-03-05] MEDS: ENOXAPARIN NA (PORCINE) 40 MG/0.4 ML DISP.SYRIN SQ SCH (10:07)
[2018-03-05] MEDS: ESCITALOPRAM OXALATE 10 MG TABLET (FP) PO SCH (10:09)
[2018-03-05] MEDS: clonazePAM 0.5 MG TABLET PO SCH ×3 (10:09→17:12)
[2018-03-05] MEDS ORDERED: morphine SULFATE 4 MG/ML VIAL IVPUSH PRN (14:15)
--- NOTE | 2018-03-05 14:17 | PN ---
Physical Exam: SUBJECTIVE: Patient seen and examined this morning at bedside. 2 episodes of nausea accompanied by vomiting overnight, resolved with Phenergan x1. Continues to feel dizziness, chills. Requests to try clear liquid diet. Request pain medication q4h overnight OBJECTIVE: Vital Signs Period Temp Pulse Resp BP Sys/Lombardi Pulse Ox Last 24 Hr 98.0 F-98.2 F 64-73 20-20 119-148/53-86 97 GENERAL: A&Ox3, NAD HEAD: NCAT EYES: PERRL, EOMI ENT: Oropharynx clear without exudates, MMM NECK: No JVD LUNGS: Clear to auscultation bilaterally, no wheezes HEART: Regular rate and rhythm, S1, S2 without murmur ABDOMEN: Soft, Decreased Tenderness to palpation in the midepigastrum, RUQ, and RLQ however recently given morphine. Nondistended, + bowel sounds, no guarding EXTREMITIES: 2+ pulses, no edema. NEUROLOGICAL: Cranial nerves II through XII grossly intact. Normal speech. 5/5 Muscle strength to Handgrip, Elbow flexion/extension, and hip flexion/ extension. Gross sensation intact throughout. Laboratory Results - last 24 hr 03/04/18 03/05/18 03/05/18 23:11 06:23 07:15 POC Glucometer 82 65 Total Bilirubin 0.5 Direct Bilirubin < 0.2 AST 35 ALT 11 L Alkaline Phosphatase 103 C-Reactive Protein < 0.3 Total Protein 6.9 Albumin 3.7 Total Amylase 116 H Active Medications Clonazepam (Klonopin -) 1 mg PO QID [facility] Last Admin: 03/05/18 10:09 Dose: 1 mg Enoxaparin Sodium (Lovenox -) 40 mg SQ DAILY [facility] Last Admin: 03/05/18 10:07 Dose: 40 mg Escitalopram Oxalate (Lexapro -) 10 mg PO DAILY [facility] Last Admin: 03/05/18 10:09 Dose: 10 mg Lactated Ringer's (Lactated Ringers Solution) 1,000 ml in 1,000 mls @ 150 mls/ hr IV ASDIR [facility] Last Admin: 03/05/18 03:29 Dose: 150 mls/hr Potassium Phosphate 30 mm/ (Dextrose) 510 mls @ 85 mls/hr IVPB ONCE ONE Stop: 03/04/18 16:14 Morphine Sulfate (Morphine Injection -) 3 mg IVPUSH Q6H PRN PRN Reason: PAIN LEVEL 7 - 10 IMAGING: -EKG: NORMAL SINUS RHYTHM, RSR' OR QR PATTERN IN V1 SUGGESTS RIGHT VENTRICULAR CONDUCTION DELAY -CT A/P: There is somewhat increased fluid within the a ascending and transverse colon - ? current/recent diarrheal illness. There is no CT evidence of acute pancreatitis. Mild acute pancreatitis may not be demonstrable on CT or MRI. Status post cholecystectomy. Status post gastric surgery. -KUB: 2 views of the abdomen reveal scoliosis with convexity to the right, right paraspinal clips left-sided sutures, pelvic phleboliths and retained stool. The lung bases appear well aerated. There is no sign of a gross obstructive process. There is some retained stool. A small bowel obstruction is not seen. There is no sign of organomegaly, calcifications or pneumoperitoneum. If symptoms persist, further imaging with CT may be of help. ASSESSMENT/PLAN: 58 y/o F with PMHx of Chronic pancreatitis, pancreatic divisum, TIA (2013) presented to [facility] with constant, 10/10, sharp pain under her R breast radiating toward her R CVA. 1. Abdominal pain -Possibly due to Acute on Chronic Pancreatitis vs gastroenteritis vs other diarrheal illness -Lipase 1791-->194 -CT A/P: ?current/recent diarrheal illness. Mild acute pancreatitis may not be demonstrable on CT or MRI. -Continue LR @ 150 mls/hr -NPO -FOBT negative -Pain control with Morphine 3mg Q6H (WOULD NOT INCREASE DOSE, recently requested dilaudid) -GI (Dr. Johnson) Consulted, Appreciate rec's, Will repeat FUA to exclude partial SBO due to adhesions -KUB: There is no sign of a gross obstructive process. There is some retained stool. A small bowel obstruction is not seen. -Amylase, CRP noted above -Hepatic function panel pending -UA Negative -Diet advanced to 2. Hypomagnesemia -Resolved 3. ?Anxiety -Continue home dose Klonopin, Lexapro 4. FEN -LR @ 150 mls/hr -Continue to monitor for hypokalemia, Hypomagnesemia -Clear liquid diet 5. PPx -DVT: Lovenox Dispo: Med-Surg
[2018-03-05] MEDS ORDERED: ACETAMINOPHEN 325 MG TABLET (FP) PO PRN (14:40)
--- NOTE | 2018-03-05 14:48 | PN ---
Teaching Attending Note Name of Resident: Estelita De Oliveira ATTENDING PHYSICIAN STATEMENT I saw and evaluated the patient. I reviewed the resident's note and discussed the case with the resident. I agree with the resident's findings and plan as documented. SUBJECTIVE: No fever or chills, Abd pain is better . reported N/V/D to me this am , but denied for photo intern. OBJECTIVE: NAD, looks comfortable. Cv: RRR, 2/6 SM at LLSB Lungs: CTAB Ext : no edema Abd: soft, ND, TTP in epigastric area and RUQ No CVA tenderness but tenderness over R paraspinal muscles ASSESSMENT AND PLAN: 58 y/o lady with h/o recurrent acute pancreatitis , pancreatic divisim, [place] procedure, [employer]air funduplication , CCY, h/o pancreatic stents at some points, TIA , appendectomy, Myomectomy, viscus perforation after colonoscopy, who presented with abd pain, N/V/D 1- Abd pain: Acute pancreatitis vs gastroenteritis , vs gastritis improved. KUB with no obstruction - start clears. - cont IVF - decrease morphine, will switch to po painmeds tomorrow - c diff and stool cx pending - avoid Qt prolonging agents if possible - monitor electrolytes - recheck LFTs 2- DVT PX : lovenox
[2018-03-05 14:53] VITALS: BP 140/69; PULSE 86; TEMP 98.4
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
[2018-03-05 15:35] LABS: ALBUMIN 3.5 g/dl (3.4-5.0); ALK PHOS 96 U/L (45-117); ANION GAP 12 MMOL/L (8-16); BILIRUBIN,TOTAL 0.5 mg/dL (0.2-1); BLOOD UREA NITROGEN 9 mg/dL (7-18); CALCIUM 8.6 mg/dL (8.5-10.1); CHLORIDE 104 mmol/L (98-107); CO2 25 mmol/L (21-32); CREATININE 0.9 mg/dL (0.55-1.3); GLUCOSE,RANDOM 52 mg/dL (74-106); MAGNESIUM 1.8 mg/dL (1.8-2.4); PHOSPHOROUS 3.3 mg/dL (2.5-4.9); POTASSIUM 3.5 mmol/L (3.5-5.1); SGOT/AST 34 U/L (15-37); SGPT/ALT 10 U/L (13-61); SODIUM 141 mmol/L (136-145); TOT PROT 6.6 g/dl (6.4-8.2)
--- NOTE | 2018-03-05 16:39 | DS ---
Physical Exam: SUBJECTIVE: Patient seen and examined this morning at bedside. 2 episodes of nausea accompanied by vomiting overnight, resolved with Phenergan x1. Abdominal pain has resolved. Able to tolerate regular diet without any more nausea, vomiting, diarrhea. OBJECTIVE: Vital Signs Period Temp Pulse Resp BP Sys/Lombardi Pulse Ox Last 24 Hr 98.0 F-98.4 F 66-86 18-20 127-148/53-86 97 PHYSICAL EXAM GENERAL: A&Ox3, NAD HEAD: NCAT EYES: PERRL, EOMI ENT: Oropharynx clear without exudates, MMM NECK: No JVD LUNGS: Clear to auscultation bilaterally, no wheezes HEART: Regular rate and rhythm, S1, S2 without murmur ABDOMEN: Soft, Decreased Tenderness to palpation in the midepigastrum, RUQ, and RLQ, + bowel sounds, no guarding EXTREMITIES: 2+ pulses, no edema. NEUROLOGICAL: Cranial nerves II through XII grossly intact. Normal speech. 5/5 Muscle strength to Handgrip, Elbow flexion/extension, and hip flexion/ extension. Gross sensation intact throughout. SKIN: Warm, dry LABS Laboratory Results - last 24 hr 03/04/18 03/05/18 03/05/18 23:11 06:23 07:15 Sodium Potassium Chloride Carbon Dioxide Anion Gap BUN Creatinine Creat Clearance w eGFR POC Glucometer 82 65 Random Glucose Calcium Phosphorus Magnesium Total Bilirubin 0.5 Direct Bilirubin < 0.2 AST 35 ALT 11 L Alkaline Phosphatase 103 C-Reactive Protein < 0.3 Total Protein 6.9 Albumin 3.7 Total Amylase 116 H 03/05/18 14:40 Sodium 141 Potassium 3.5 Chloride 104 Carbon Dioxide 25 Anion Gap 12 BUN 9 Creatinine 0.9 Creat Clearance w eGFR > 60 POC Glucometer Random Glucose 52 L Calcium 8.6 Phosphorus 3.3 Magnesium 1.8 Total Bilirubin 0.5 Direct Bilirubin AST 34 ALT 10 L Alkaline Phosphatase 96 C-Reactive Protein Total Protein 6.6 Albumin 3.5 Total Amylase Microbiology 03/05/18 12:35 Stool Clostridium difficile Antigen (JACKIE) - Final 03/05/18 12:35 Stool Clostridium difficile Toxin Assay - Final 03/03/18 16:12 Urine - Urine Clean Catch Urine Culture - Final NO GROWTH OBTAINED IMAGING: -EKG: NORMAL SINUS RHYTHM, RSR' OR QR PATTERN IN V1 SUGGESTS RIGHT VENTRICULAR CONDUCTION DELAY -CT A/P: There is somewhat increased fluid within the a ascending and transverse colon - ? current/recent diarrheal illness. There is no CT evidence of acute pancreatitis. Mild acute pancreatitis may not be demonstrable on CT or MRI. Status post cholecystectomy. Status post gastric surgery. -KUB: 2 views of the abdomen reveal scoliosis with convexity to the right, right paraspinal clips left-sided sutures, pelvic phleboliths and retained stool. The lung bases appear well aerated. There is no sign of a gross obstructive process. There is some retained stool. A small bowel obstruction is not seen. There is no sign of organomegaly, calcifications or pneumoperitoneum. If symptoms persist, further imaging with CT may be of help. HOSPITAL COURSE: Date of Admission:03/03/18 Date of Discharge: 03/05/18 58 y/o F with PMHx of Chronic pancreatitis, pancreatic divisum, TIA (2013) [facility] with constant, 10/10, sharp pain under her R breast radiating toward her R CVA. Her UA was not suggestive of infection. Lipase on admission was 1791. A CT A/P was done that revealed no CT evidence of acute pancreatitis (noted above). Patient was started on LR at 150 mls/hr, kept NPO and given Morphine for pain control. GI was consulted and a follow up KUB was done that revealed no sign of a gross obstructive process and no SBO. Patients diet was advanced from clears to regular, and she was able to tolerate without any nausea, vomiting, diarrhea or abdominal pain. Her magnesium was repleted during her stay. Her stool was negative for C. Diff toxin and antigen. Patient was discharged home with instructions to follow up with Dr. Johnson in his office. Minutes to complete discharge: 40 Discharge Summary Reason For Visit: PANCREATITIS Current Active Problems Abdominal pain (Acute) Anxiety (Chronic) Diverticulosis (Chronic) GERD (gastroesophageal reflux disease) (Chronic) History of appendectomy (Chronic) History of pancreatic surgery (Chronic) History of repair of hiatal hernia (Chronic) Hx of cholecystectomy (Chronic) Pancreatitis (Chronic) Condition: Stable - Instructions Diet, Activity, Other Instructions: You presented to the hospital with abdominal pain. One of your pancreatic blood levels was elevated. Imaging did not reveal any signs of small bowel obstruction. Your stool cultures were negative. You were seen by a GI doctor and it was concluded that your pain was not due to pancreatitis. Your diet was advanced and you were able to tolerate solid food. It is important you follow up with GI Doctor. Please call Dr. Johnson's office to schedule follow up within a week. Please follow up with your primary care physician in one week. Continue all your other medications as prescribed. Please return to the ER if you have any signs or symptoms of chest pain, shortness of breath, uncontrollable fever, chills, nausea, vomiting, numbness, tingling, or weakness in any part of your body, changes in vision, or slurred speech. Please return to the ER if symptoms persist, worsen, or new symptoms arise. Referrals: Massimo Johnson MD [Staff Physician] - Casey Santamaria [Other] Disposition: HOME - Home Medications Comprehensive Discharge Medication List: Ambulatory Orders Clonazepam [Klonopin] 1 mg PO QID 03/03/18 Escitalopram Oxalate [Lexapro -] 10 mg PO DAILY 03/03/18 This patient is new to me today: No Emergency Visit: No Critical Care patient: No - Discharge Referral Referred to [facility] No
== END 2018-03-05 17:18 | disposition home or self-care (01) | DRG 392 ==
LOC: JER 13:49 → JERBED 19:53 → J6S 03-04 09:52
PROVIDERS: ADMIT Internal Medicine; ATTEND Internal Medicine
DX: R10.11 Right upper quadrant pain (principal); R11.2 Nausea with vomiting, unspecified; E83.42 Hypomagnesemia; K21.9 Gastro-esophageal reflux disease without esophagitis; F41.9 Anxiety disorder, unspecified; K57.90 Diverticulosis of intestine, part unspecified, without perforation or abscess without bleeding; Z86.73 Personal history of transient ischemic attack (TIA), and cerebral infarction without residual deficits; Z87.891 Personal history of nicotine dependence
CPT/HCPCS: 36415; 74018-TC-FY; 74177-TC; 80048; 80053; 80076; 81003; 81015; 82150; 82272; 82550; 82962; 83690; 83735; 84100; 84484; 85025; 85610; 85730; 86140; 87045; 87046; 87086; 87205; 87324; 87449; 93005; 93010; 99285-25; J7030; Q0162